=== PATIENT | male | born 1985 | race Caucasian/White ===

== ENCOUNTER 2022-12-27 10:25 | Emergency (ER) | payer OTHER, SELFPAY ==
[2022-12-27] VITALS (7 sets, daily range): BP systolic 116–128; BP diastolic 49–60; PULSE 103; RESP 18; TEMP 36.9; O2SAT 93–98; BMI 35.0
--- NOTE | 2022-12-27 10:37 | ED_ITS ---
HPI - Weakness General Chief complaint: Weakness Stated complaint: BODY ACHES AND NAUSEA AFTER LONG SUN EXPOSER Time Seen by Provider: 12/27/22 10:37 Source: patient and family Mode of arrival: Wheelchair Limitations: no limitations History of Present Illness HPI Narrative: Patient presents to emergency department complaining of weakness. He states yesterday he was out and the son approximately 12 hours while in the swimming pool. He states he was drinking water but he feels like he has he poisoning. After he got home he was nauseated and felt generally weak and has some nausea. He still feels the same way. He has not taking anything at home. He has a mild headache. He has not applied anything to the sunburn over his head and neck. He denies any fever he states he had a lot of chills and he got home. He denies any vomiting, diarrhea, constipation, or abdominal pain. He denies any chest, shortness of breath. Denies any focal weakness. Denies any visual disturbance, or speech difficulties. Related Data Home Medications Medication Instructions Recorded Confirmed omeprazole 20 mg capsule,delayed 20 mg PO DAILY 12/27/22 12/27/22 release Allergies Allergy/AdvReac Type Severity Reaction Status Date / Time lamotrigine [From Lamictal] AdvReac Mild Verified 12/27/22 10:33 Review of Systems ROS Status of ROS 10 or more systems reviewed and unremarkable except as noted in history and below [facility] Social History Smoking status: Former smoker Exam Narrative Exam Narrative: Nurses notes and vital signs reviewed and patient is not hypoxic. General: Nontoxic, Well-appearing and in no apparent distress. Skin: Warm, dry, no pallor noted. forehead and neck with superficial sunburn Head: Normocephalic, atraumatic. Neck: Supple, non-tender. Eye: Pupils are equal, round and EOMI. No scleral icterus. Ears, Nose, Mouth, and Throat: TM clear, no posterior oropharynx erythema or nasal mucosal hypertrophy, uvula is mid-line Oral mucosa is dry Cardiovascular: Regular Rate and Rhythm without murmur, gallop or rub. Respiratory: No accessory muscle use or respiratory distress. Lungs are clear to auscultation, no wheezing, rales or rhonchi Chest Wall: no tenderness Back: No midline thoracic or lumbar vertebral tenderness. No CVA tenderness Musculoskeletal: normal ROM, no calf or popliteal tenderness, no lower extremity edema/swelling GI: Abdomen is soft, non-distended. Normal bowel sounds. No masses appreciated. No tenderness to palpation. No rebound, guarding, or rigidity noted. Neurological: A&O x4. No cranial nerve dysfunction observed. No truncal ataxia. Moves all extremities. Sensation intact. Psychiatric: Cooperative and interactive. Normal mood and affect. Constitutional Vital Signs, click to edit/add: Last Vital Signs Temp 98.5 F 12/27/22 10:30 Pulse 103 H 12/27/22 10:30 Resp 18 12/27/22 10:30 BP 116/49 12/27/22 12:30 Pulse Ox 96 12/27/22 12:50 O2 Del Method Room Air 12/27/22 10:30 Course Vital Signs Vital signs: Vital Signs Temperature 98.5 F 12/27/22 10:30 Pulse Rate 103 H 12/27/22 10:30 Respiratory Rate 18 12/27/22 10:30 Blood Pressure 128/60 12/27/22 10:30 Pulse Oximetry 98 12/27/22 10:30 Oxygen Delivery Method Room Air 12/27/22 10:30 Temperature 98.5 F 12/27/22 10:30 Pulse Rate 103 H 12/27/22 10:30 Respiratory Rate 18 12/27/22 10:30 Blood Pressure 116/49 12/27/22 12:30 Pulse Oximetry 96 12/27/22 12:50 Oxygen Delivery Method Room Air 12/27/22 10:30 MDM - Weakness MDM Narrative Medical decision making narrative: Studies ordered. Patient is given a liter of normal saline, Toradol, and Zofran. Patient felt better. All results were discussed with patient. At this time the patient is without objective evidence of an acute process requiring hospitalization or inpatient management. The patient has remained hemodynamically stable. No additional indication for emergent studies at this time. I answered all questions. Discussed discharge instructions including standard anticipatory guidance and what should prompt a return to the emergency department, including if they get worse are not getting better or develops any new or concerning symptoms. I've given them specific time frame in which to follow-up, and who to follow-up with. The patient demonstrates understanding. Patient is nontoxic and stable for discharge with outpatient follow-up. This note was created with the assistance of a speech recognition program. Although the intention is to generate documents that actually reflects the content of the visit, no guarantees can be provided that every mistake has been identified and corrected by editing. Lab Data Attestation: I reviewed the patient's lab results. Labs: Lab Results 12/27/22 Range/Units 10:49 WBC 11.2 H (4.0-11.0) 10^3/uL RBC 4.63 L (4.70-6.10) 10^6/uL Hgb 14.1 (14.0-18.0) g/dL Hct 41.0 L (42.0-54.0) % MCV 88.6 (80.0-94.0) fL MCH 30.5 (25.9-34.0) pg MCHC 34.4 (29.9-35.2) g/dL RDW 13.3 (11.0-15.0) % Plt Count 226 (150-450) 10^3/uL MPV 9.4 L (9.5-13.5) fL Neut % (Auto) 78.1 H (43.0-75.0) % Lymph % (Auto) 8.9 L (20.5-60.0) % [place] % (Auto) 12.1 H (1.7-12.0) % Eos % (Auto) 0.0 L (0.9-7.0) % Baso % (Auto) 0.5 (0.2-2.0) % Neut # (Auto) 8.7 H (1.4-6.5) 10^3/uL Lymph # (Auto) 1.0 L (1.2-3.8) 10^3/uL [place] # (Auto) 1.4 H (0.3-0.8) 10^3/uL Eos # (Auto) 0.0 (0.0-0.7) 10^3/uL Baso # (Auto) 0.1 (0.0-0.1) 10^3/uL Abs Immat Gran (auto) 0.04 H (0.00-0.03) 10^3/uL Imm/Tot Granulo (auto) 0.4 (0.0-0.5) % Sodium 137 (136-145) mmol/L Potassium 3.6 (3.5-5.1) mmol/L Chloride 102 (98-107) mmol/L Carbon Dioxide 25.2 (21.0-32.0) mmol/L Anion Gap 13.4 BUN 13.0 (7.0-18.0) mg/dL Creatinine 1.10 (0.70-1.30) mg/dL Est GFR ( Amer) >60 (>=60) Est GFR (Non-Af Amer) >60 (>=60) BUN/Creatinine Ratio 11.8 Glucose 108 H (74-106) mg/dL Calcium 8.3 L (8.5-10.1) mg/dL Magnesium 1.7 L (1.8-2.4) mg/dL Total Creatine Kinase 115 (39-308) U/L Myoglobin 85 (16-96) ng/mL Monoscreen Negative (NEGATIVE) Discharge Plan Discharge Chief Complaint: Weakness Clinical Impression: Dehydration Patient Disposition: Home, Self-Care Time of Disposition Decision: 13:15 Condition: Good Mode of Transportation: Private Vehicle Prescriptions / Home Meds: No Action omeprazole 20 mg capsule,delayed release(DR/EC) 20 mg PO DAILY Instructions: Dehydration (ED), Heat Exhaustion (ED) Stand Alone Forms: Portal Instructions Referrals: KENNEDY ALVARENGA [Primary Care Provider] - 1 week Discharge Date/Time: 12/27/22 13:32
[2022-12-27] MEDS: KETOROLAC TROMETHAMINE 30 MG/ML VIAL IVP (10:56)
[2022-12-27] MEDS: ONDANSETRON PF 4 MG/2 ML VIAL IV (10:56)
[2022-12-27] MEDS: 0.9 % SODIUM CHLORIDE 1,000 ML 999 ML IV (10:56)
[2022-12-27 11:01] LABS: Basophils Absolute Auto 0.1 10^3/uL (0.0-0.1); Basophils Percent Auto 0.5 % (0.2-2.0); Hemoglobin 14.1 g/dL (14.0-18.0); Immature Granulocytes Abs Auto 0.04 10^3/uL (0.00-0.03); Immature Granulocytes Pct Auto 0.4 % (0.0-0.5); Lymphocytes Percent Auto 8.9 % (20.5-60.0); Mean Corpuscular HGB Conc 34.4 g/dL (29.9-35.2); Mean Corpuscular Hemoglobin 30.5 pg (25.9-34.0); Mean Corpuscular Volume 88.6 fL (80.0-94.0); Mean Platelet Volume 9.4 fL (9.5-13.5); Monocytes Absolute Auto 1.4 10^3/uL (0.3-0.8); Monocytes Percent Auto 12.1 % (1.7-12.0); Neutrophils Absolute Auto 8.7 10^3/uL (1.4-6.5); Neutrophils Percent Auto 78.1 % (43.0-75.0); Platelet Count 226 10^3/uL (150-450); Red Blood Count 4.63 10^6/uL (4.70-6.10); Red Cell Distribution Width 13.3 % (11.0-15.0); White Blood Count 11.2 10^3/uL (4.0-11.0)
[2022-12-27 11:26] LABS: Anion Gap 13.4; BUN Creatinine Ratio 11.8; Calcium 8.3 mg/dL (8.5-10.1); Carbon Dioxide 25.2 mmol/L (21.0-32.0); Chloride 102 mmol/L (98-107); Creatine Kinase 115 U/L (39-308); Estimated GFR (African America >60 (>=60); Estimated GFR (Non-African Ame >60 (>=60); Glucose 108 mg/dL (74-106); Magnesium 1.7 mg/dL (1.8-2.4); Myoglobin 85 ng/mL (16-96); Potassium 3.6 mmol/L (3.5-5.1); Sodium 137 mmol/L (136-145)
[2022-12-27 12:32] LABS: Mono Screen NEGATIVE (NEGATIVE)
== END 2022-12-27 13:32 | disposition home or self-care (01) ==
PROVIDERS: Emergency Provider Emergency Medicine; PCP Family Medicine
DX: E86.0 Dehydration (principal); Z87.891 Personal history of nicotine dependence
CPT/HCPCS: 36415; 80048; 82550; 83735; 83874; 85025; 86308; 96374; 96375; 99284

== ENCOUNTER 2023-02-05 14:37 | Emergency (ER) | payer OTHER, SELFPAY ==
[2023-02-05 14:41] VITALS: BP 146/89; PULSE 69; RESP 18; TEMP 36.5; O2SAT 98; BMI 35.9
--- NOTE | 2023-02-05 14:59 | ED.SKABFB1 ---
HPI - Skin/Abscess/Foreign Bdy General Chief complaint: Skin/Abscess/Foreign Body Stated complaint: GROIN RASH Time Seen by Provider: 02/05/23 14:45 Source: patient Mode of arrival: walk-in History of Present Illness HPI narrative: 37-year-old male presents for a five day history of bilateral groin rash. He states he sweats a lot. He's had it before, many years ago. He's had this for about five days now. Symptoms are continuous. Related Data Home Medications Medication Instructions Recorded Confirmed omeprazole 20 mg capsule,delayed 20 mg PO DAILY 12/27/22 12/27/22 release Previous Rx's Medication Instructions Recorded clotrimazole-betamethasone 1 1 applic topical BID #45 grams 02/05/23 %-0.05 % topical cream fluconazole 100 mg tablet 100 mg PO DAILY #7 tabs 02/05/23 (Diflucan) Allergies Allergy/AdvReac Type Severity Reaction Status Date / Time lamotrigine [From Lamictal] AdvReac Mild Verified 02/05/23 14:46 Review of Systems ROS Narrative A ten point review of systems is negative except as noted above. PFSH PFSH Social History Smoking status: Former smoker Exam Narrative Exam Narrative: Nurses note and vital signs reviewed and patient is not hypoxic. General: The patient appears well and in no apparent distress. Patient is resting comfortably on cart. Skin: Warm, dry, no pallor noted. There is erythematous bilateral groin area rash present. No open area or purulent drainage. Head: Normocephalic, atraumatic Eye: Normal conjunctiva, no drainage Ears, Nose, Mouth, and Throat: oral mucosa is moist. Nares patent. Cardiovascular: Regular Rate and Rhythm Respiratory: Patient is in no distress, no accessory muscle use, lungs are clear to auscultation, no wheezing, rales or rhonchi Back: non-tender, GI: soft and nontender Musculoskeletal: The patient has no evidence of calf tenderness, no pitting edema, symmetrical pulses noted bilaterally Neurological: A&O, normal speech Psychiatric: Cooperative Constitutional Vital Signs, click to edit/add: Last Vital Signs Temp 97.7 F 02/05/23 14:41 Pulse 69 02/05/23 14:41 Resp 18 02/05/23 14:41 BP 146/89 H 02/05/23 14:41 Pulse Ox 98 02/05/23 14:41 O2 Del Method Room Air 02/05/23 14:41 Course Vital Signs Vital signs: Vital Signs Temperature 97.7 F 02/05/23 14:41 Pulse Rate 69 02/05/23 14:41 Respiratory Rate 18 02/05/23 14:41 Blood Pressure 146/89 H 02/05/23 14:41 Pulse Oximetry 98 02/05/23 14:41 Oxygen Delivery Method Room Air 02/05/23 14:41 Temperature 97.7 F 02/05/23 14:41 Pulse Rate 69 02/05/23 14:41 Respiratory Rate 18 02/05/23 14:41 Blood Pressure 146/89 H 02/05/23 14:41 Pulse Oximetry 98 02/05/23 14:41 Oxygen Delivery Method Room Air 02/05/23 14:41 MDM - Skin/Abscess/Foreign Bdy MDM Narrative Medical decision making narrative: my clinical impression is that he has tinea cruris. He is prescribed Lotrisone and Diflucan, he is getting in a week. Treatment diagnosis and follow-up were discussed with the patient. Differential Diagnosis Differential diagnosis: Likely abscess of skin or subcutaneous tissue, dermatophytosis, cellulitis and contact dermatitis Discharge Plan Discharge Chief Complaint: Skin/Abscess/Foreign Body Clinical Impression: Tinea cruris Patient Disposition: Home, Self-Care Time of Disposition Decision: 14:53 Condition: Good Mode of Transportation: Private Vehicle Prescriptions / Home Meds: New fluconazole [Diflucan] 100 mg tablet 100 mg PO DAILY Qty: 7 0RF clotrimazole-betamethasone 1-0.05 % cream 1 applic topical BID Qty: 45 0RF No Action omeprazole 20 mg capsule,delayed release(DR/EC) 20 mg PO DAILY Instructions: Skin Yeast Infection (ED) Additional Instructions: keep that area dry Stand Alone Forms: Portal Instructions Referrals: KENNEDY ALVARENGA [Primary Care Provider] - 1 week
== END 2023-02-05 15:14 | disposition home or self-care (01) ==
PROVIDERS: Emergency Provider Emergency Medicine; PCP Family Medicine
DX: B35.6 Tinea cruris (principal); Z79.899 Other long term (current) drug therapy; Z87.891 Personal history of nicotine dependence
CPT/HCPCS: 99283